=== PATIENT | female | born 1985 | race Caucasian/White ===

== ENCOUNTER 2018-04-22 14:57 | Outpatient (CLI) | payer BC ==
--- NOTE | 2018-04-22 16:14 | ULT ---
TRANSVAGINAL PELVIC ULTRASOUND: Date: 04/22/18 INDICATINO: History of endometriosis and right inguinal pain. FINDINGS: Uterus measures 10.8 x 5.4 x 4.7 cm. Endometrial stripe measures 4.9 mm. Right ovary measures 2.9 x 2.5 x 2.3 cm. Left ovary measures 2.9 x 2.8 x 1.8 cm. There is normal flow to both ovaries. No free fluid is evident. Incidental nabothian cysts seen within the cervix. Multiple nonpathologically enlarged lymph nodes are seen within the right inguinal region in the chaitanya on of pain in the right groin. IMPRESSION: 1. No acute sonographic abnormality within the pelvis. 2. Nonspecific lymph nodes within the right groin region. None are pathologically enlarged based on size criteria. POS: ADY
== END 2018-04-22 14:58 | disposition home or self-care (01) ==
LOC: SCSULT 14:57
PROVIDERS: ATTEND Family Medicine
DX: N92.6 Irregular menstruation, unspecified (principal); R10.31 Right lower quadrant pain
CPT/HCPCS: 76856

== ENCOUNTER 2018-09-18 09:52 | Outpatient (CLI) | payer BC | END 2018-09-18 09:53 | disposition home or self-care (01) | LOC: BICMAMMO 09:52 | PROVIDERS: ATTEND Family Medicine | DX: Z12.31 Encounter for screening mammogram for malignant neoplasm of breast (principal); Z80.3 Family history of malignant neoplasm of breast | CPT/HCPCS: 77063; 77067 ==

== ENCOUNTER 2020-04-28 13:36 | Outpatient (CLI) | payer BC ==
--- NOTE | 2020-04-28 15:02 | RAD ---
EXAM: XR Lumbar Spine Min 4 View PROVIDED CLINICAL HISTORY: Chronic low back pain. COMPARISON: None FINDINGS: There are 5 nonrib-bearing lumbar-type vertebral bodies. Bilateral pars defects are seen at L5 with s uggestion of trace anterolisthesis of L5 on S1. No additional level of subluxation is seen. The trace anterolisthesis does appear slightly improved on extension compared to flexion and neutral posi tioning. No additional level of subluxation is seen. Vertebral body heights. No fracture is seen. IMPRESSION: Spondylolisthesis lumbosacral junction with trace anterolisthesis of L5 on S1 noted on neutral and fl exion positioning with resolution of the trace anterolisthesis on extension.
== END 2020-04-28 13:37 | disposition home or self-care (01) ==
LOC: SCSRAD 13:36
PROVIDERS: ATTEND Neurological Surgery
DX: M54.5 Low back pain (principal); M43.16 Spondylolisthesis, lumbar region; M43.17 Spondylolisthesis, lumbosacral region
CPT/HCPCS: 72110

== ENCOUNTER 2021-08-09 07:39 | Outpatient (CLI) | payer BC | END 2021-08-09 07:40 | disposition home or self-care (01) | LOC: SCSMRI 07:39 | PROVIDERS: ATTEND Orthopaedic Surgery | DX: S46.911A Strain of unspecified muscle, fascia and tendon at shoulder and upper arm level, right arm, initial encounter (principal); M75.111 Incomplete rotator cuff tear or rupture of right shoulder, not specified as traumatic ==

== ENCOUNTER 2021-09-06 07:34 | Outpatient (CLI) | payer BC | END 2021-09-06 07:35 | disposition home or self-care (01) | LOC: NM 07:34 | PROVIDERS: ATTEND Orthopaedic Surgery | DX: M25.811 Other specified joint disorders, right shoulder (principal); D75.89 Other specified diseases of blood and blood-forming organs | CPT/HCPCS: 78306; A9503 ==

== ENCOUNTER 2021-09-23 07:44 | Outpatient (CLI) | payer BC ==
[2021-09-23 09:56] LABS: #Basophils 0.1 thou/uL (0.0-0.2); #Eosinphils 0.1 thou/uL (0.0-0.7); #Lymphocytes 1.7 thou/uL (1.20-3.40); #Monocytes 0.4 thou/uL (0.11-0.59); #Neutrophils 3.3 thou/uL (1.40-6.50); %Basophils 1.6 % (0.0-1.0); %Eosinophils 1.9 % (0.0-10.0); %Lymphocytes 29.8 % (21.0-51.0); %Monocytes 7.7 % (0.0-10.0); Hemoglobin 14.3 g/dL (12.0-16.0); Mean Corpuscular HGB CONC 33.1 g/dL (32.0-36.0); Mean Corpuscular Volume 96.8 fL (78.0-98.0); Mean Platelet Volume 8.5 fL (7.4-10.4); Platelet Count 297 thou/uL (130-400); RBC Distribution Width 11.7 % (11.5-14.5); Red Blood Cell (RBC) Count 4.47 mill/uL (4.20-5.40); White Blood Cell (WBC) Count 5.6 thou/uL (4.8-10.8)
[2021-09-23 10:43] LABS: Bacteria/HPF None Seen HPF (None Seen); Bilirubin Negative (Negative); Blood, Urine Negative (Negative); Clarity Clear (Clear); Glucose, Urine (Dipstick) Normal (Negative); Ketone, Urine Negative (Negative); Leukocyte Negative Leu/uL (Negative); Nitrite Negative (Negative); Protein, Urine (Dipstick) Negative (Neg-Trace); RBC/HPF 0-3 HPF (0-3); Specific Gravity, Urine 1.029 (1.002-1.036); Urobilinogen Normal mg/dL (Less than 2); WBC/HPF 0-3 HPF (0-3)
[2021-09-23 11:06] LABS: ALT (SGPT) 8 U/L (8-55); AST (SGOT) 14 U/L (5-34); Albumin 4.1 g/dL (3.5-5.0); Alkaline Phosphatase 36 U/L (40-110); Anion Gap 11 mmol/L (10-20); BUN (Urea Nitrogen) 13 mg/dL (7.0-18.7); Bilirubin, Total 0.5 mg/dL (0.2-1.2); Calc. Creatinine Clearance 0 mL/min (70-130); Calcium 8.7 mg/dL (7.8-10.44); Carbon Dioxide 28 mmol/L (22-29); Cardiac Risk 2.9 (Less than 4.5); Chloride 103 mmol/L (98-107); Cholesterol 181 mg/dl (< 200 Desired); Globulin 2.6 g/dL (2.4-3.5); Glucose 97 mg/dL (70-105); HDL Cholesterol 62 mg/dL (>60 Neg Risk); LDL Cholesterol, Calculated 107 mg/dL; Potassium 4.3 mmol/L (3.5-5.1); Protein, Total 6.7 g/dL (6.0-8.3); Sodium 138 mmol/L (136-145); Triglycerides 59 mg/dL (Less than 150)
== END 2021-09-23 07:45 | disposition home or self-care (01) ==
LOC: SCSMRI 07:44
PROVIDERS: ATTEND Orthopaedic Surgery
DX: Z00.00 Encounter for general adult medical examination without abnormal findings (principal); M47.22 Other spondylosis with radiculopathy, cervical region
CPT/HCPCS: 36415; 72141; 80053; 80061; 81001; 85025

== ENCOUNTER 2024-06-23 10:52 | Outpatient (CLI) | payer BC | END 2024-06-23 10:53 | disposition home or self-care (01) | LOC: SCSMRI 10:52 | PROVIDERS: ATTEND Family Medicine | DX: M51.26 Other intervertebral disc displacement, lumbar region (principal); M47.22 Other spondylosis with radiculopathy, cervical region; G62.9 Polyneuropathy, unspecified; M43.16 Spondylolisthesis, lumbar region; M48.061 Spinal stenosis, lumbar region without neurogenic claudication; M48.07 Spinal stenosis, lumbosacral region; M48.02 Spinal stenosis, cervical region; M53.82 Other specified dorsopathies, cervical region | CPT/HCPCS: 72141; 72148 ==

== ENCOUNTER 2024-07-10 15:59 | Outpatient (CLI) | payer BC | END 2024-07-10 16:00 | disposition home or self-care (01) | LOC: SCSRAD 15:59 | PROVIDERS: ATTEND Neurological Surgery | DX: M43.16 Spondylolisthesis, lumbar region (principal); M47.22 Other spondylosis with radiculopathy, cervical region; M41.35 Thoracogenic scoliosis, thoracolumbar region | CPT/HCPCS: 72050; 72120 ==